=== PATIENT | male | born 1940 | race Caucasian/White ===

== ENCOUNTER 2023-01-05 08:38 | Day surgery (SDC) | payer MEDICARE ==
[2023-01-03 14:56] LABS: BASOPHILS % (AUTO) 1.2 % (0.0-5.0); EOSINOPHILS % (AUTO) 5.7 % (0.0-8.0); LYMPHOCYTES % (AUTO) 13.2 % (21.0-51.0); MEAN CORPUSCULAR HEMOGLOBIN 33.2 pg (27.0-33.0); MEAN CORPUSCULAR HGB CONC 32.6 g/dL (32.0-36.0); MEAN CORPUSCULAR VOLUME 101.8 fL (79-99); MONOCYTES % (AUTO) 9.4 % (3.0-13.0); NEUTROPHILS % (AUTO) 69.1 % (40.0-77.0); PLATELET COUNT (AUTO) 170 K/uL (130-400); RED BLOOD CELL COUNT(AUTO) 3.83 MIL/uL (4.50-6.20); RED CELL DISTRIBUTION WIDTH 14.3 % (11.0-15.5); WHITE BLOOD COUNT (AUTO) 6.6 K/uL (4.8-10.8)
[2023-01-03 15:01] LABS: APPEARANCE,URINE CLOUDY (CLEAR); BILIRUBIN,URINE NEGATIVE (NEGATIVE); COLOR,URINE YELLOW (YELLOW); GLUCOSE, URINE (UA) NEGATIVE (NEGATIVE); KETONES,URINE NEGATIVE (NEGATIVE); LEUKOCYTE ESTERASE ,URINE 500 Leu/uL (NEGATIVE); NITRATE,URINE NEGATIVE (NEGATIVE); OCCULT BLOOD,URINE NEGATIVE (NEGATIVE); PROTEIN,URINE NEGATIVE (NEGATIVE); UROBILINOGEN,URINE 0.2 mg/dL (0.2-1.0)
[2023-01-03 15:09] LABS: CREATININE 1.1 mg/dL (0.5-1.5); POTASSIUM 5.1 mmol/L (3.5-5.1)
[2023-01-03 15:11] LABS: BACTERIA,URINE MANY /HPF (None Seen); MUCUS,URINE RARE LPF (None Seen); SQUAMOUS EPITHELIAL CELL,UR RARE /HPF (0-2); WBC,URINE TNTC /HPF (0-1)
[2023-01-03 15:17] VITALS: BP 153/75
[2023-01-03 15:27] LABS: INR 1.02 (0.85-1.15); PROTHROMBIN TIME 11.1 SEC (9.6-11.6)
[2023-01-03 15:28] LABS: PARTIAL THROMBOPLASTIN TIME 33.4 SEC (26.3-35.5)
[2023-01-05] VITALS (10 sets, daily range): BP systolic 103–149; BP diastolic 64–72
[~2023-01-05] VITALS: Ht 179.1 cm; Wt 123.7 kg
[~2023-01-05 08:38] MED LIST: ALLO300T2 PO; BENA40TA92 PO; PROP10DR5 OU; SIMV10TA97 PO
[2023-01-05] MEDS ORDERED: 0.9%NACL 1000ML 1,000 ML IV ONE (08:57)
[2023-01-05] MEDS ORDERED: DiphenhydrAMINE HCL 50 MG/ML VIAL ONE (13:10)
[2023-01-05] MEDS ORDERED: LIDOCAINE HCL 400MG/20ML VIAL ONE (13:37)
[2023-01-05] MEDS ORDERED: VERAPAMIL HCL 2.5 MG/ML VIAL ONE (13:38)
[2023-01-05] MEDS ORDERED: MIDAZOLAM HCL 1 MG/ML 2ML VIAL ONE (13:38)
[2023-01-05] MEDS ORDERED: FENTANYL CITRATE PF 50 MCG/1 ML 2ML VIAL ONE (13:38)
[2023-01-05] MEDS ORDERED: IOHEXOL-350 75 ML VIAL IV ONE (13:38)
[2023-01-05] MEDS ORDERED: HEPARIN 10,000 UNIT/10ML (1,000 UNIT/ML) VIAL ONE (13:38)
[2023-01-05] MEDS ORDERED: NITROGLYCERIN 50MG VIAL ONE (13:38)
[2023-01-05] MEDS ORDERED: IOHEXOL-350 50ML VIAL IV ONE (14:42)
[2023-01-05] MEDS ORDERED: 0.9%NACL 1000ML 1,000 ML IV SCH (15:30)
[2023-01-05] MEDS ORDERED: METOPROLOL TARTRATE 25 MG TAB ONE (17:47)
[2023-01-05] MEDS ORDERED: METOPROLOL TARTRATE 25 MG TAB PO SCH (21:00)
== END 2023-01-05 19:35 | disposition home or self-care (01) ==
LOC: DAH 08:38
PROVIDERS: ATTEND Internal Medicine Cardiovascular Disease
DX: I25.119 Atherosclerotic heart disease of native coronary artery with unspecified angina pectoris (principal); I10 Essential (primary) hypertension; I87.2 Venous insufficiency (chronic) (peripheral); E78.00 Pure hypercholesterolemia, unspecified; Z98.890 Other specified postprocedural states; Z87.891 Personal history of nicotine dependence; Z72.89 Other problems related to lifestyle; I25.82 Chronic total occlusion of coronary artery; Z79.01 Long term (current) use of anticoagulants; Z79.899 Other long term (current) drug therapy
CPT/HCPCS: 80048; 85025; 85610; 85730; 87088; 81001; 36415; 93005; 93458; 87077; 87186; C1769 ×2; A4649; C1894; J1200; J3010; J3490 ×3; J7030; J1644 ×2; J2250; Q9967 ×2; A4215; A4222; A4221; A4663; A4216; A4606; A4223 ×3; 99156; 99157